=== PATIENT | female | born 1935 | race Caucasian/White ===

== ENCOUNTER 2017-01-10 15:04 | Inpatient (IN) | payer MEDICARE, BC ==
[~2017-01-10] VITALS: Ht 165.1 cm; Wt 62.6 kg
--- NOTE | 2017-01-10 15:44 | NUR ---
PT BIBA FOR S/P GLF COMPLAINING OF LEFT HIP PAIN, DENIES KO, DENIES HEAD OR BACK PAIN. HISTORY OF HIP PROBLEMS. FAMILY MEMBERS AT BS. VSS. SAFETY AND COMFORT MEASURES PROVIDED. WILL MONITOR.
--- NOTE | 2017-01-10 15:46 | NUR ---
MS AT FOR JOSAL.
[2017-01-10] MEDS ORDERED: ONDANSETRON HCL/PF 4 MG/2 ML VIAL ONE (16:06)
[2017-01-10] MEDS ORDERED: HYDROMORPHONE 1 MG/1 ML DISP.SYRIN ONE ×3 (16:06→23:35)
[2017-01-10 16:19] LABS: BASOPHILS # (AUTO) 0.1 /CMM (0.0-0.2); BASOPHILS % (AUTO) 0.3 % (0.0-2.0); EOSINOPHILS # (AUTO) 0.2 /CMM (0.0-0.7); EOSINOPHILS % (AUTO) 0.9 % (0.0-6.0); HEMATOCRIT 40 % (33-45); HEMOGLOBIN 13.6 g/dL (11.5-14.8); LYMPHOCYTES # (AUTO) 1.3 /CMM (0.8-4.8); LYMPHOCYTES % (AUTO) 7.8 % (20.0-44.0); MEAN CORPUSCULAR HEMOGLOBIN 32 PG (26.0-33.0); MEAN CORPUSCULAR HGB CONC 34 g/dl (31.0-36.0); MEAN CORPUSCULAR VOLUME 94 fL (82-100); MONOCYTES # (AUTO) 1.1 /CMM (0.1-1.30); MONOCYTES % (AUTO) 6.6 % (2.0-12.0); NEUTROPHILS # (AUTO) 14.3 /CMM (1.8-8.9); NEUTROPHILS % (AUTO) 84.4 % (43.0-81.0); PLATELET COUNT (AUTO) 349 /CMM (150-450); RDW COEFFICIENT OF VARIATION 11.6 (11.5-15.0); RED BLOOD CELL COUNT(AUTO) 4.29 MIL/uL (4.0-5.2)
[2017-01-10 16:28] LABS: CALCIUM, SERUM 9.3 mg/dL (8.5-10.1); CREATININE 0.8 mg/dL (0.6-1.3); POTASSIUM 3.3 mmol/L (3.5-5.1)
[2017-01-10] MEDS ORDERED: ONDANSETRON HCL/PF - ER 4 MG/2 ML VIAL IV ONE (16:30)
[2017-01-10] MEDS ORDERED: HYDROMORPHONE 1 MG/1 ML DISP.SYRIN IV ONE ×2 (16:30→18:00)
[2017-01-10] MEDS ORDERED: HYDROMORPHONE MDV 0.5 MG in IV D5W 50 ML IV PRN (16:30)
[2017-01-10 16:32] LABS: INR 0.96 (0.87-1.13)
--- NOTE | 2017-01-10 18:17 | NUR ---
PAGED ENGINEERING SCIENTIST ORTHO
--- NOTE | 2017-01-10 18:26 | NUR ---
PAGED ORTHO DR MARCANO RAD
[2017-01-10] MEDS ORDERED: HYDR-3326 PO ×2 (18:39)
[2017-01-10] MEDS ORDERED: PRAV80TA PO (18:39)
[2017-01-10] MEDS ORDERED: AMLO5TAB4 PO (18:39)
[2017-01-10] MEDS ORDERED: LETR2.5T PO (18:39)
[2017-01-10] MEDS ORDERED: QUET25TA PO (18:39)
[2017-01-10] MEDS ORDERED: ACET-2605 PO (18:39)
[2017-01-10] MEDS ORDERED: LORA1TAB82 PO (18:39)
[2017-01-10] MEDS ORDERED: LACT1CAP55 PO (18:39)
[2017-01-10] MEDS ORDERED: LEVO25TA7 PO (18:39)
[2017-01-10] MEDS ORDERED: DOCU-25 PO (18:39)
[2017-01-10] MEDS ORDERED: PARO10TA26 PO (18:39)
[2017-01-10] MEDS ORDERED: FERR-58 PO (18:39)
--- NOTE | 2017-01-10 18:42 | NUR ---
REPAGED DR KRYS SMITH
--- NOTE | 2017-01-10 18:50 | NUR ---
DR LIZ ON THE PHONE WITH DR SMITH
[2017-01-10] MEDS ORDERED: IV SET PRIMARY PUMP SET 1 EA INFUS.SET MC ONE (18:55)
[2017-01-10] MEDS ORDERED: IV NS 0.9% 500 ML IV ONE ×2 (18:55→21:38)
[2017-01-10] MEDS ORDERED: IV NS 0.9% 500 ML BAG IV ONE ×2 (19:30→21:30)
--- NOTE | 2017-01-10 19:44 | NUR ---
RECEIVED PATIENT IN BED, ALERT, RESPONSIVE TO VERBAL AND TACTILE STIMULI. VSS. FAMILY AT BEDSIDE. NO FURTHER COMPLAINTS.
--- NOTE | 2017-01-10 21:24 | NUR ---
Report given to Belen RAMOS for justyna.
[2017-01-10] MEDS ORDERED: IV SET PRIMARY 1 EA INFUS.SET MC ONE (21:38)
--- NOTE | 2017-01-10 22:40 | NUR ---
spoke with radiology regarding CD order for the family and he said, "he's going to go up in 309 and give to family." Endorsed as well to Belen RAMOS. Transported to ms room 309-2, no incident noted.
--- NOTE | 2017-01-10 22:45 | NUR ---
RN ADMITTING NOTES RECEIVED REPORT FROM [employer]MINISTRAT[employer]. Pt ARRIVED TO FLOOR VIA GURNEY. NO S/S OF ACUTE DISTRESS OR SOB NOTED. Pt TRANSFERRED TO BED SAFELY. DAUGHTER AND CAREGIVER AT BEDSIDE. Pt IS INTERMITTENTLY AWAKE, SPEECH IS SLIGHTLY GARBLED. IV ACCESS ON LAC #20G. SAFETY MEASURES IN PLACE. BED LOW, LOCKED, HOB SLIGHTLY ELEVATED, SIDE RAILS UP, CALL LIGHT AND BEDSIDE TABLE WITHIN REACH. WILL CONTINUE TO MONITOR Pt THROUGHOUT THE NIGHT FOR SAFETY.
[2017-01-10 23:00] VITALS: BP 123/66
[2017-01-10] MEDS ORDERED: HYDROCODONE/APAP 5/325MG 1 EACH TABLET PO PRN ×2 (23:00)
[2017-01-10] MEDS ORDERED: POTASSIUM CHLORIDE 20 MEQ TAB.PRT.SR PO ONE (23:30)
[2017-01-10] MEDS ORDERED: ONDANSETRON HCL/PF 4 MG/2 ML VIAL IV PRN (23:30)
[2017-01-10 23:55] LABS: LACTIC ACID 2.1 mmol/L (0.4-2.0)
[2017-01-11] MEDS ORDERED: POTASSIUM CHLORIDE 20 MEQ TAB.PRT.SR PO ONE (00:12)
[2017-01-11] MEDS ORDERED: IV SET PRIMARY PUMP SET 1 EA INFUS.SET MC ONE (00:14)
[2017-01-11] MEDS ORDERED: IV D5/ 0.9% NACL 1,000 ML IV ONE (00:14)
[2017-01-11] MEDS: IV D5/ 0.9% NACL 1,000 ML IV SCH ×2 (00:45→02:10)
[2017-01-11 01:34] LABS: BILIRUBIN,DIRECT 0.1 mg/dL (0.0-0.2); BILIRUBIN,TOTAL 0.4 mg/dL (0.2-1.0)
[2017-01-11 01:40] LABS: LACTIC ACID REFLEX 1.2 mmol/L (0.4-1.9)
[2017-01-11] MEDS ORDERED: HYDROMORPHONE 1 MG/1 ML DISP.SYRIN ONE (04:27)
[2017-01-11] MEDS: HYDROMORPHONE 1 MG/1 ML DISP.SYRIN IV PRN ×3 (04:34→21:11)
[2017-01-11] MEDS ORDERED: LORAZEPAM 1 MG TABLET ONE (06:20)
[2017-01-11 06:39] LABS: BASOPHILS # (AUTO) 0.1 /CMM (0.0-0.2); BASOPHILS % (AUTO) 0.4 % (0.0-2.0); EOSINOPHILS % (AUTO) 0.1 % (0.0-6.0); HEMATOCRIT 32 % (33-45); HEMOGLOBIN 10.9 g/dL (11.5-14.8); LYMPHOCYTES # (AUTO) 1.5 /CMM (0.8-4.8); LYMPHOCYTES % (AUTO) 11.6 % (20.0-44.0); MEAN CORPUSCULAR HEMOGLOBIN 32 PG (26.0-33.0); MEAN CORPUSCULAR HGB CONC 34 g/dl (31.0-36.0); MEAN CORPUSCULAR VOLUME 95 fL (82-100); MONOCYTES # (AUTO) 1.6 /CMM (0.1-1.30); MONOCYTES % (AUTO) 12.2 % (2.0-12.0); NEUTROPHILS # (AUTO) 9.8 /CMM (1.8-8.9); NEUTROPHILS % (AUTO) 75.7 % (43.0-81.0); PLATELET COUNT (AUTO) 278 /CMM (150-450); RDW COEFFICIENT OF VARIATION 12.7 (11.5-15.0); WHITE BLOOD COUNT (AUTO) 12.9 K/uL (4.3-11.0)
--- NOTE | 2017-01-11 06:45 | NUR ---
RN CLOSING NOTES NO SIGNIFICANT CHANGES DURING THE NIGHT. NO S/S OF ACUTE DISTRESS OR SOB NOTED. SAFETY MEASURES IN PLACE. Pt IS NPO EXCEPT FOR MEDS. ALL NEEDS MET AND ATTENDED TO. WILL ENDORSE TO DAYSHIFT RN FOR Pt's ROMARIO.
[2017-01-11 06:54] LABS: INR 0.93 (0.87-1.13); PROTHROMBIN TIME 9.9 SECS (9.5-12.7)
[2017-01-11 06:55] LABS: CALCIUM, SERUM 8.5 mg/dL (8.5-10.1); CREATININE 1.8 mg/dL (0.6-1.3); POTASSIUM 3.9 mmol/L (3.5-5.1)
[2017-01-11] MEDS ORDERED: LORAZEPAM 1 MG TABLET PO SCH (07:00)
--- NOTE | 2017-01-11 07:45 | NUR ---
MS RN OPENING NOTE PATIENT IS ALERT AND ORIENTED x2. NO PAIN AT THIS TIME. NO SOB OR DISTRESS NOTED. SAFETY MEASURES IMPLEMENTED. CALL LIGHT WITHIN REACH. BURR CATHETER IN PLACE. NO IRRITATION AT THIS TIME. IV INTACT AND PATENT NO REDNESS OR SWELLING WILL CONTINUE TO MONITOR
[2017-01-11 08:00] VITALS: BP 100/53
[2017-01-11] MEDS: AMLODIPINE BESYLATE 5 MG TABLET PO SCH (09:00)
[2017-01-11] MEDS: LETROZOLE 2.5 MG TABLET PO SCH (09:00)
[2017-01-11] MEDS: PAROXETINE HCL 10 MG TABLET PO SCH (09:25)
[2017-01-11] MEDS: DOCUSATE SODIUM 100 MG CAPSULE PO SCH (09:26)
[2017-01-11] MEDS: LEVOTHYROXINE SODIUM 25 MCG TABLET PO SCH (09:26)
[2017-01-11] MEDS: FERROUS SULFATE (325 MG) 325 MG/TAB TABLET PO SCH (09:26)
[2017-01-11 11:34] LABS: ALBUMIN 3.2 g/dL (3.4-5.0); BILIRUBIN,DIRECT 0.1 mg/dL (0.0-0.2); BILIRUBIN,TOTAL 0.4 mg/dL (0.2-1.0); TOTAL PROTEIN, SERUM 6.9 g/dL (6.4-8.2)
[2017-01-11 11:47] LABS: THYROID STIMULATING HORMONE 1.04 uIU/mL (0.358-3.74)
[2017-01-11 16:00] VITALS: BP 133/61
--- NOTE | 2017-01-11 19:00 | NUR ---
MS RN OPENING NOTE PATIENT IS ALERT AND ORIENTED x2 NO S/S OF DISTRESS, NO CHEST PAIN. NO SOB OR DISTRESS NOTED. IN STABLE CONDITION. SAFETY MEASURES IMPLEMENTED. BURR CATHETER IN PLACE.. IV INTACT NO S/S OF INFILTRATION NOTED. CALL LIGHT WITHIN REACH. ON LOW BED TO ENSURE SAFETY. WILL CONTINUE TO MONITOR
--- NOTE | 2017-01-11 19:12 | NUR ---
MS RN CLOSING NOTE PATIENT IS ALERT AND ORIENTED x2. NO PAIN AT THIS TIME. NO SOB OR DISTRESS NOTED. IV INTACT AND PATENT. CALL LIGHT WITHIN REACH AT ALL TIMES. SAFETY MEASURES IMPLEMENTED. PATIENT COMPLAINING OF BURR CATHETER BOTHERING HER, MADE MD AWARE. LEFT HIP FRACTURE. NO LONGER NPO DIET. WILL ENDORSE TO WASHING MACHINE REPAIRER NURSE
[2017-01-11 20:00] VITALS: BP 151/67
[2017-01-11] MEDS: LORAZEPAM 1 MG TABLET PO SCH (21:10)
[2017-01-11] MEDS: QUETIAPINE FUMARATE 25 MG TABLET PO SCH (21:11)
[2017-01-12] MEDS: IV D5/ 0.9% NACL 1,000 ML IV SCH ×2 (02:10→15:30)
[2017-01-12] MEDS: HYDROMORPHONE 1 MG/1 ML DISP.SYRIN IV PRN ×2 (02:34→15:12)
--- NOTE | 2017-01-12 06:06 | NUR ---
MS RN NOTES IV HYDRATION 75CC NOT GIVEN,, ORDER SAYS WHILE NPO....PATIENT NOT NPO.
--- NOTE | 2017-01-12 06:28 | NUR ---
MS RN CLOSING NOTES PATIENT COMFORTABLY ASLEEP AND EASILY AWAKEN,. A/O X 2 IV SITE NO S/S OF INFILTRATED, RESPIRATIONS EVEN AND UNLABORED. NO S/S OF ACUTE DISTRESS, NO SOB, NO COUGH, NO CONGESTION, SKIN WARM AND DRY TO TOUCH, AFEBRILE, ALL NURSING CARE NEEDS PROVIDED AND RENDERED, NEEDS ATTENDED AND ANTICIPATED, KEPT CLEAN AND DRY AND COMFORTABLE, BLADDER NOT DISTENDED, REPOSITIONED EVERY 2 HOURS FOR SKIN MANAGEMENT. GOOD SKIN CARE PROVIDED. ABDOMEN SOFT AND NON TENDER. NO C/O OF CONSTIPATION. ALL DUE MEDS WAS GIVEN TOLERATED. OFFLOAD AT ALL TIMES. FREQUENT VISUAL CHECK DONE FOR SAFETY EVERY 2 HOURS. SAFE HAZARD FREE ENVIRONMENT PROVIDED. CALL LIGHT WITHIN EASY TO REACH, ON LOW BED AT ALL TIMES TO ENSURE SAFETY, WILL ENDORSE TO THE NEXT SHIFT CONTINUE PLAN OF CARE. F/C CATH INTACT DRAINING YELLOW VIA GRAVITY WITH NO SEDIMENTS NO HEMATURIA NO CLOUDINESS. GOOD FC CARE PROVIDED
[2017-01-12 06:39] LABS: BASOPHILS % (AUTO) 0.4 % (0.0-2.0); EOSINOPHILS # (AUTO) 0.1 /CMM (0.0-0.7); EOSINOPHILS % (AUTO) 0.9 % (0.0-6.0); HEMATOCRIT 27 % (33-45); HEMOGLOBIN 9.3 g/dL (11.5-14.8); LYMPHOCYTES # (AUTO) 1.3 /CMM (0.8-4.8); LYMPHOCYTES % (AUTO) 12.9 % (20.0-44.0); MEAN CORPUSCULAR HEMOGLOBIN 33 PG (26.0-33.0); MEAN CORPUSCULAR HGB CONC 35 g/dl (31.0-36.0); MEAN CORPUSCULAR VOLUME 95 fL (82-100); MONOCYTES # (AUTO) 1.3 /CMM (0.1-1.30); MONOCYTES % (AUTO) 12.8 % (2.0-12.0); NEUTROPHILS # (AUTO) 7.5 /CMM (1.8-8.9); PLATELET COUNT (AUTO) 166 /CMM (150-450); RDW COEFFICIENT OF VARIATION 12.6 (11.5-15.0); RED BLOOD CELL COUNT(AUTO) 2.82 MIL/uL (4.0-5.2); WHITE BLOOD COUNT (AUTO) 10.2 K/uL (4.3-11.0)
[2017-01-12 06:42] LABS: ALBUMIN 2.9 g/dL (3.4-5.0); BILIRUBIN,TOTAL 0.5 mg/dL (0.2-1.0); CALCIUM, SERUM 8.4 mg/dL (8.5-10.1); CREATININE 1.4 mg/dL (0.6-1.3); MAGNESIUM 1.8 mg/dL (1.8-2.4); PHOSPHORUS 3.1 mg/dL (2.5-4.9); POTASSIUM 4.2 mmol/L (3.5-5.1); TOTAL PROTEIN, SERUM 6.5 g/dL (6.4-8.2)
--- NOTE | 2017-01-12 07:30 | NUR ---
MS RN OPENING NOTE PATIENT IS ALERT AND ORIENTED x2. NO PAIN AT THIS TIME. NO SOB OR DISTRESS NOTED. ALL NURSING CARE NEEDS WILL BE ATTENDED TO. SAFETY MEASURES IMPLEMENTED. CALL LIGHT WITHIN REACH WILL CONTINUE TO MONITOR
[2017-01-12 08:00] VITALS: BP_SYST 152; BP_SYST 92; BP_DIAS 54; BP_DIAS 68
[2017-01-12] MEDS: DOCUSATE SODIUM 100 MG CAPSULE PO SCH (08:13)
[2017-01-12] MEDS: PAROXETINE HCL 10 MG TABLET PO SCH (08:13)
[2017-01-12] MEDS: AMLODIPINE BESYLATE 5 MG TABLET PO SCH (08:13)
[2017-01-12] MEDS: LORAZEPAM 1 MG TABLET PO SCH ×2 (08:13→21:26)
[2017-01-12] MEDS: LEVOTHYROXINE SODIUM 25 MCG TABLET PO SCH (08:13)
[2017-01-12] MEDS: FERROUS SULFATE (325 MG) 325 MG/TAB TABLET PO SCH (08:13)
[2017-01-12] MEDS: LETROZOLE 2.5 MG TABLET PO SCH (08:47)
[2017-01-12 12:00] VITALS: BP 122/70
--- NOTE | 2017-01-12 15:45 | NUR ---
MS RN NOTE PATIENT'S DAUGHTER STATED TO ME THAT PATIENT DID NOT LOOK WELL. I WENT TO ASSESS PATIENT, NOTICED PATIENT WAS HAVING MUSCLE SPASMS IN RIGHT AND LEFT SIDE OF THE BODY AND MADE DR. NICHOLSON AWARE. RECEIVED ORDERS FOR EEG. MADE CHARGE NURSE AWARE
[2017-01-12 16:00] VITALS: BP 147/70
--- NOTE | 2017-01-12 18:15 | NUR ---
MS RN NOTE WENT TO CHECK ON PATIENT AND NOTICED PATIENT WAS OFF BASELINE. CHECKED VITALS WHICH WERE STABLE. PATIENT NOT ABLE TO VERBALIZE NEEDS, PATIENT GRUNTS AND MOANS. NOTIFIED DR. NICHOLSON TO MAKE AWARE. PATIENT'S DAUGHTER REQUESTED TO HAVE DOCTOR COME LOOK AT HER MOTHER. MADE DR. LEON AWARE OF SITUATION OF PATIENT, GAVE STAT ORDER FOR ARTERIAL BLOOD GAS TO BE DRAWN AFTER EEG. WILL NOTIFY PACKAGE DRIER NURSE
--- NOTE | 2017-01-12 19:00 | NUR ---
MS RN OPENING NOTE PATIENT IS ALERT AND ORIENTED x2, FAMILY AT BEDSIDE, WILL WAIT FOR THE RESULTS OF EEG, NO S/S OF DISTRESS, NO CHEST PAIN. NO SOB OR DISTRESS NOTED. IN STABLE CONDITION. SAFETY MEASURES IMPLEMENTED. BURR CATHETER IN PLACE.. IV INTACT NO S/S OF INFILTRATION NOTED. CALL LIGHT WITHIN REACH. ON LOW BED TO ENSURE SAFETY. WILL CONTINUE TO MONITOR
--- NOTE | 2017-01-12 19:12 | NUR ---
MS RN CLOSING NOTE PATIENT IS STABLE AT THIS TIME. ALERT AND ORIENTED x2. PATIENT IS NOT AT BASELINE. , DR. NICHOLSON AWARE. STAT ABG'S TO BE DONE. NO PAIN AT THIS TIME. PATIENT HAD EEG DONE, AWAITING RESULTS. WILL ENDORSE TO PUBLIC WEIGHER NURSE.
[2017-01-12 20:00] VITALS: BP 140/74
[2017-01-12 21:00] VITALS: BP 142/67
[2017-01-12] MEDS: QUETIAPINE FUMARATE 25 MG TABLET PO SCH (21:26)
[2017-01-12 21:27] LABS: ABG BASE EXCESS -2.1 mmol/L; ABG OXYGEN SATURATION 91.7 % (92.0-98.5); ABG PCO2 30.6 mmHg (35.0-45.0); ABG PH 7.455 (7.350-7.450); ABG PO2 62.4 mmHg (75.0-100.0); ABG TOTAL HEMOGLOBIN 11.1 G/dL (12.0-16.0); AaDO2 101.1 mmHg; COHb 1.3 % (0.5-1.5); MetHb 0.7 % (0.0-1.5); O2Hb 89.9 % (94.0-97.0); SITE, ABG Left Radial
[2017-01-13] MEDS: IV D5/ 0.9% NACL 1,000 ML IV SCH (04:50)
--- NOTE | 2017-01-13 04:50 | NUR ---
IV D5NS AT 0450 NOT GIVEN PATIENT INSTRUCTION SHOULD BE GIVEN WHILE THE PATIENT IS NPO. PATIENT NOT NPO AT THIS TIME.
--- NOTE | 2017-01-13 06:31 | NUR ---
MS RN CLOSING NOTES IN BED ASLEEP AND EASILY AWAKEN, ON 2LPM VIA NC 02 SAT AT 97% SEMI FOWLERS POSITION, SKIN WARM AND DRY TO TOUCH, AFEBRILE, ALL NURSING CARE NEEDS PROVIDED AND RENDERED, NEEDS ATTENDED AND ANTICIPATED, KEPT CLEAN AND DRY AND COMFORTABLE, BLADDER NOT DISTENDED, CONTINUE WITH CURRENT MEDICATION ORDERED, NO LATE ADVERSE REACTION NOTED/REPORTED. FLUIDS PROVIDED ORDERED. COOPERATIVE TO HER PLAN OF CARE. SAFE HAZARD FREE ENVIRONMENT MAINTAINED. REPOSITIONED EVERY 2 HOURS FOR SKIN MANAGEMENT AND COMFORT. GOOD SKIN CARE PROVIDED. ALL DUE MEDS WAS GIVEN. IN STABLE CONDITION NO S/S OF DISTRESS. KEPT AT LOW BED. FREQUENT VISUAL CHECK FOR SAFETY. PLAN OF CARE ORDERED. CALL LIGHT ATTENDED PROMPTLY AND KEPT AT EASY REACH. WILL ENDORSE TO THE NEXT SHIFT CONTINUE PLAN OF CARE. FC CATH IN PLACE WITH NO SEDIMENTS, NO HEMATURIA, NO CLOUDINESS, GOOD FC CARE PROVIDED.
[2017-01-13 06:51] LABS: BASOPHILS % (AUTO) 0.3 % (0.0-2.0); EOSINOPHILS # (AUTO) 0.2 /CMM (0.0-0.7); EOSINOPHILS % (AUTO) 1.8 % (0.0-6.0); HEMATOCRIT 23 % (33-45); HEMOGLOBIN 7.9 g/dL (11.5-14.8); LYMPHOCYTES # (AUTO) 1.3 /CMM (0.8-4.8); LYMPHOCYTES % (AUTO) 13.6 % (20.0-44.0); MEAN CORPUSCULAR HEMOGLOBIN 33 PG (26.0-33.0); MEAN CORPUSCULAR HGB CONC 34 g/dl (31.0-36.0); MEAN CORPUSCULAR VOLUME 95 fL (82-100); MONOCYTES # (AUTO) 1.3 /CMM (0.1-1.30); MONOCYTES % (AUTO) 14.4 % (2.0-12.0); NEUTROPHILS # (AUTO) 6.5 /CMM (1.8-8.9); NEUTROPHILS % (AUTO) 69.9 % (43.0-81.0); PLATELET COUNT (AUTO) 177 /CMM (150-450); RDW COEFFICIENT OF VARIATION 12.5 (11.5-15.0); RED BLOOD CELL COUNT(AUTO) 2.43 MIL/uL (4.0-5.2); WHITE BLOOD COUNT (AUTO) 9.3 K/uL (4.3-11.0)
[2017-01-13 07:09] LABS: CALCIUM, SERUM 8.5 mg/dL (8.5-10.1); CREATININE 0.7 mg/dL (0.6-1.3); MAGNESIUM 1.7 mg/dL (1.8-2.4); POTASSIUM 3.8 mmol/L (3.5-5.1)
[2017-01-13 08:00] VITALS: BP 137/69
--- NOTE | 2017-01-13 08:00 | NUR ---
MS RN AM NOTES PATIENT IS ALERT AND ORIENTED x2, VERBALLY RESPONSIVE.CG AT BEDSIDE.NO S/S OF DISTRESS, NO CHEST PAIN. NO SOB OR DISTRESS NOTED. IN STABLE CONDITION. SAFETY MEASURES IMPLEMENTED. BURR CATHETER IN PLACE DRAINING CLEAR YELLOW URINE.WITH DISTENDED ABDOMEN DUE TO GALLBLADDER CA.IV H/L INTACT TO LEFT AC WITH IVF OF D5NS AT 75 ML/HR INFUSING WELL.NO S/S OF INFILTRATION NOTED.CAUTIOUS WITH TURNING AND REPOSITIONING DUE TO LT HIP FX WITH 2 PERSON ASSIST. CALL LIGHT WITHIN REACH. ON LOW BED TO ENSURE SAFETY. WILL CONTINUE TO MONITOR
[2017-01-13] MEDS: LEVOTHYROXINE SODIUM 25 MCG TABLET PO SCH (08:30)
--- NOTE | 2017-01-13 08:30 | NUR ---
ABLE TO CONSUME 1/2 CUP OF EGGS. FED BY GENERAL HANDLING SUPERVISOR WITH ASPIRATION PRECAUTIONS.WITH HOB ELEVATED.PT TOLERATED WELL.OFFERED FLUIDS AND CONSUMED ATLEAST 2 CUPS OF H2O.
[2017-01-13] MEDS: LORAZEPAM 1 MG TABLET PO SCH ×2 (08:31→21:07)
[2017-01-13] MEDS: FERROUS SULFATE (325 MG) 325 MG/TAB TABLET PO SCH ×2 (08:33→10:23)
[2017-01-13] MEDS: HYDROMORPHONE 1 MG/1 ML DISP.SYRIN IV PRN (08:33)
[2017-01-13] MEDS: DOCUSATE SODIUM 100 MG CAPSULE PO SCH ×2 (08:34→10:22)
[2017-01-13] MEDS ORDERED: Magnesium 1GM/D5W 100ML PREMIX 100 ML IV SCH (09:30)
[2017-01-13 10:04] LABS: BASOPHILS % (AUTO) 0.2 % (0.0-2.0); EOSINOPHILS # (AUTO) 0.1 /CMM (0.0-0.7); EOSINOPHILS % (AUTO) 1.2 % (0.0-6.0); HEMATOCRIT 24 % (33-45); HEMOGLOBIN 8.2 g/dL (11.5-14.8); LYMPHOCYTES # (AUTO) 1.1 /CMM (0.8-4.8); LYMPHOCYTES % (AUTO) 10.7 % (20.0-44.0); MEAN CORPUSCULAR HEMOGLOBIN 32 PG (26.0-33.0); MEAN CORPUSCULAR HGB CONC 34 g/dl (31.0-36.0); MEAN CORPUSCULAR VOLUME 94 fL (82-100); MONOCYTES # (AUTO) 1.4 /CMM (0.1-1.30); MONOCYTES % (AUTO) 13.4 % (2.0-12.0); NEUTROPHILS # (AUTO) 7.6 /CMM (1.8-8.9); NEUTROPHILS % (AUTO) 74.5 % (43.0-81.0); PLATELET COUNT (AUTO) 202 /CMM (150-450); RDW COEFFICIENT OF VARIATION 12.5 (11.5-15.0); RED BLOOD CELL COUNT(AUTO) 2.58 MIL/uL (4.0-5.2); WHITE BLOOD COUNT (AUTO) 10.2 K/uL (4.3-11.0)
--- NOTE | 2017-01-13 10:07 | NUR ---
TEXTED FOR MRI APPROVAL.
[2017-01-13] MEDS ORDERED: SECONDARY IV SET 1 EA INFUS.SET MC ONE (10:12)
[2017-01-13] MEDS: PAROXETINE HCL 10 MG TABLET PO SCH (10:21)
[2017-01-13] MEDS: LETROZOLE 2.5 MG TABLET PO SCH (10:22)
[2017-01-13] MEDS: Magnesium 1GM/D5W 100ML PREMIX 100 ML IV SCH ×2 (10:25→11:44)
[2017-01-13] MEDS: AMLODIPINE BESYLATE 5 MG TABLET PO SCH (10:26)
--- NOTE | 2017-01-13 11:00 | NUR ---
DR SMITH CALLED AND WAS CHECKING ON THE PT STATUS.PT WILL BE DISCHARGED TO [facility] ONCE BED IS AVAILABLE AND THE ORTHO SURGEON WILL BE DR LAW AND THE HOSPITALIST WILL BE DR GILBERT.
[2017-01-13] MEDS ORDERED: K PHOS NEUTRAL 250 MG TABLET PO ONE (14:00)
[2017-01-13 16:00] VITALS: BP 140/72
--- NOTE | 2017-01-13 16:30 | NUR ---
PT NOTED TO BEING FED BY CAREGIVER AT 35-40 DEGREES HOB ELEVATION.EXPLAINED TO PT'S DAUGHTER AND CG,TO ELEVATE THE HOB AT 90 DEGREES TO PREVENT ASPIRATION.PT'S DAUGHTER,FARTUN AND CG SAID PT WAS OK.
[2017-01-13] MEDS ORDERED: IV D5/ 0.9% NACL 1,000 ML IV PRN (17:00)
[2017-01-13] MEDS ORDERED: IPRATROPIUM NEB FS 0.5 MG/2.5 ML AMPUL.NEB NEB PRN (17:00)
--- NOTE | 2017-01-13 17:00 | NUR ---
PT'S DAUGHTER,FARTUN C/O THAT PT IS WHEEZING AND IS HAVING SOB.EMPHASIZED TO THE CG AND DAUGHTER,FARTUN THAT IS THE REASON WHY THE PT NEEDS TO HAVE HER HOB ELEVATED WHEN BEING FED WITH FLUIDS OR FOOD.PT REMAINS ON 35 DEGREES STILL AND DAUGHTER REFUSED FOR ME TO HAVE THE HOB ELEVATED SAYING PT BREATHES BETTER WITH LESS WHEEZING ON THIS 35 DEGREE ELEVATION.CHECKED PT'S O2 SAT WHICH WAS 95% ON O2 AT 2L/MIN VIA N/C.PAGED DR LEON AWAITING TO RETURN CALL.
[2017-01-13] MEDS ORDERED: ALBUTEROL FS 2.5 MG/3 ML VIAL.NEB NEB PRN (17:06)
--- NOTE | 2017-01-13 17:13 | NUR ---
PT IS C/O HAVING DIFFICULTY VOIDING INSPITE OF HAVING THE BURR CATHETER INTACT.PT'S DAUGHTER STATED THAT PT'S BLADDER GOT IRRITATED FROM THE BURR INSERTION AND WANTS TO RULE OUT UTI.NOTIFIED DR LEON WITH ORDERS FOR UA UA C/S DONE AND SENT TO LAB.
--- NOTE | 2017-01-13 17:40 | NUR ---
PT'S DAUGHTER,FARTUN STATED THAT HER MOM IS HAVING ALLERGIC REACTION AND HER MOM'S LOWER LIP IS GETTING SWOLLEN INCLUDING THE NECK.NO RED RASHES OR HIVES NOTED.NO C/O ITCHINESS JUST WHEEZING .PAGED DR LEON AND AWAITING TO RETURN CALL.
--- NOTE | 2017-01-13 17:54 | NUR ---
EYEBAG PUFFINESS NOTED.PT'S DAUGHTER,FARTUN AND CG INSISTS THAT PT'S NECK SWELLING AND LOWER LIP IS GETTING BIGGER WHICH I HAVE NOT OBSERVED UPON CHECKING THE PT.INFORMED DR LEON IN WHICH FARTUN,PT'S DAUGHTER ALSO SPOKE TO HIM ON THE PHONE WELL.BENADRYL 25 MG IV GIVEN.PT'S O2 SAT REMAINS AT 95% AND ALBUTEROL AND ATROVENT BREATHING TX GIVEN BY R.T.
[2017-01-13] MEDS ORDERED: diphenhydrAMINE HCL 50 MG/ML VIAL IV ONE (18:00)
--- NOTE | 2017-01-13 18:30 | NUR ---
CHECKED ON THE PT AND O2 SAT 100% ON O2 AT 3L/MIN VIA N/C.DECREASED O2 AT 2L/MIN VIA NC AND WILL MONITOR.PT'S DAUGHTER,FARTUN STATED THAT THE SWELLING OF THE NECK AND THE LOWER LIP IS SLOWLY SUBSIDING.WILL CONTINUE TO MONITOR.DAUGHTER,FARTUN NOW IS REQUESTING FOR A BOOST CHOCOLATE FOR HER MOM.CALLED DR LEON AND CARRIED OUT.
[2017-01-13] MEDS: BOOST PLUS FOOD-CHOCLATE 237 ML BOX PO SCH (19:00)
--- NOTE | 2017-01-13 19:00 | NUR ---
MS RN OPENING NOTE PATIENT IS ALERT AND ORIENTED X2, NO PUFFINESS IN THE EYES NO SWELLING OF THE NECK, FAMILY AT BEDSIDE, NO S/S OF DISTRESS, NO CHEST PAIN. NO SOB OR DISTRESS NOTED. IN STABLE CONDITION. SAFETY MEASURES IMPLEMENTED. BURR CATHETER IN PLACE DRAINING YELLOW VIA GRAVITY WITH NO SEDIMENTS NO HEMTAURIA NO CLOUDINESS. IV INTACT NO S/S OF INFILTRATION NOTED. CALL LIGHT WITHIN REACH. ON LOW BED TO ENSURE SAFETY. WILL CONTINUE TO MONITOR
[2017-01-13] MEDS: HYDROCODONE/APAP 10/325MG 1 EA TABLET PO PRN (19:08)
--- NOTE | 2017-01-13 19:30 | NUR ---
MS3/RN CLOSING NOTE PATIENT IS ALERT AND ORIENTED x2, VERBALLY RESPONSIVE.CG AT BEDSIDE.NO CHEST PAIN AND NO SOB. PT. C/O PAIN AND WAS GIVEN NORCO PAIN MEDICATION. IN STABLE CONDITION. SAFETY MEASURES IMPLEMENTED. BURR CATHETER IN PLACE DRAINING CLEAR YELLOW URINE.WITH DISTENDED ABDOMEN DUE TO GALLBLADDER CA.IV H/L INTACT TO LEFT AC WITH IVF OF D5NS AT 75 ML/HR INFUSING WELL.NO S/S OF INFILTRATION NOTED.CAUTIOUS WITH TURNING AND REPOSITIONING DUE TO LT HIP FX WITH 2 PERSON ASSIST. CALL LIGHT WITHIN REACH. ON LOW BED TO ENSURE SAFETY. WILL CONTINUE TO MONITOR
[2017-01-13 20:00] VITALS: BP_SYST 147; BP_DIAS 61; BP_DIAS 67
[2017-01-13] MEDS: QUETIAPINE FUMARATE 25 MG TABLET PO SCH (21:07)
--- NOTE | 2017-01-14 06:45 | NUR ---
MS RN CLOSING NOTES PATIENT COMFORTABLY IN BED ASLEEP AND EASILY AWAKEN, ALERT AND VERBALLY X 2 RESPONSIVE DENIES PAIN OR DISTRESS, RESPONDS APPROPRIATELY TO VERBAL STIMULI, RESPIRATIONS EVEN UNLABORED BREATH SOUNDS. IV HYDRATION RUNNING WELL. TOLERATED. APICAL PULSE REGULAR; NO S/S OF BLEEDING NOTED. GOOD SKIN CARE PROVIDED. PATIENT IN STABLE CONDITION WITH NO SOB NO S/S OF DISTRESS NO NAUSEA AND VOMITING NO HEADACHE NO PAIN, NO COMPLAIN OF CHEST PAIN SAFETY ENVIRONMENT PROVIDED. FREE OF CLUTTERS, NEEDS ATTENDED AND ANTICIPATED, NURSING CARE RENDERED, KEPT CLEAN AND DRY AND COMFORTABLE. ALL DUE MEDS WAS GIVEN. REPOSITIONED Q2H FOR COMFORT AND SKIN MGT. CALL LIGHT IN REACH, BED LOWERED AND LOCKED, SR X2 FOR SAFETY AND WILL ENDORSE CONTINUE PLAN OF CARE. FC INTACT DRAINING YELLOW VIA GRAVITY WITH NO SEDIMENTS NO HEMATURIA NO CLOUDINESS GOOD FC CARE PROVIDED. MRI TO BE DONE TODAY
[2017-01-14 07:10] LABS: BASOPHILS % (AUTO) 0.4 % (0.0-2.0); EOSINOPHILS # (AUTO) 0.4 /CMM (0.0-0.7); EOSINOPHILS % (AUTO) 4.6 % (0.0-6.0); HEMATOCRIT 23 % (33-45); HEMOGLOBIN 7.8 g/dL (11.5-14.8); LYMPHOCYTES # (AUTO) 0.9 /CMM (0.8-4.8); LYMPHOCYTES % (AUTO) 12.4 % (20.0-44.0); MEAN CORPUSCULAR HEMOGLOBIN 32 PG (26.0-33.0); MEAN CORPUSCULAR HGB CONC 34 g/dl (31.0-36.0); MEAN CORPUSCULAR VOLUME 95 fL (82-100); MONOCYTES % (AUTO) 13.7 % (2.0-12.0); NEUTROPHILS # (AUTO) 5.2 /CMM (1.8-8.9); NEUTROPHILS % (AUTO) 68.9 % (43.0-81.0); PLATELET COUNT (AUTO) 188 /CMM (150-450); RDW COEFFICIENT OF VARIATION 12.3 (11.5-15.0); RED BLOOD CELL COUNT(AUTO) 2.42 MIL/uL (4.0-5.2); WHITE BLOOD COUNT (AUTO) 7.6 K/uL (4.3-11.0)
--- NOTE | 2017-01-14 07:21 | NUR ---
MS RN OPENING NOTES RECEIVED PATIENT RESTING IN BED COMFORTABLY, ASLEEP RESPONDS TO VERBAL STIMULI, RESPIRATIONS EVEN AND UNLABORED. NO ACUTE DISTRESS NOTED, NO S/S OF PAIN OR DISCOMFORT. IV HYDRATION RUNNING WELL, IV SITE INTACT NO, S/S OF INFECTION/INFILTRATION NOTED. FC INTACT DRAINING YELLOW URINE VIA GRAVITY. SAFETY MEASURES RENDERED, BED LOCKED IN LOWEST POSITION. WILL CONTINUE TO MONITOR.
[2017-01-14 07:25] LABS: CALCIUM, SERUM 8.2 mg/dL (8.5-10.1); CREATININE 0.7 mg/dL (0.6-1.3); POTASSIUM 3.4 mmol/L (3.5-5.1)
[2017-01-14] MEDS: LEVOTHYROXINE SODIUM 25 MCG TABLET PO SCH (07:59)
[2017-01-14 08:00] VITALS: BP 119/69
[2017-01-14] MEDS: LORAZEPAM 1 MG TABLET PO SCH (08:00)
[2017-01-14] MEDS: BOOST PLUS FOOD-CHOCLATE 237 ML BOX PO SCH (08:00)
[2017-01-14] MEDS: PAROXETINE HCL 10 MG TABLET PO SCH (08:00)
[2017-01-14] MEDS: AMLODIPINE BESYLATE 5 MG TABLET PO SCH (08:01)
[2017-01-14 08:16] VITALS: BP 119/69
--- NOTE | 2017-01-14 10:05 | NUR ---
MS/RN NOTES PATIENTS CAREGIVER AT BEDSIDE. DISCUSSED WITH CAREGIVER ON PATENTS CURRENT CONDITION AND PLAN OF CARE. PATENT'S IV WAS STARTED BY PREVIOUS NURSE WHERE IT WAS TAPED DOWN WITH SURGICAL TAPE, WHICH PATENT IS ALLERGIC AND HAD LOCAL REACTION TO IT SUCH REDNESS, COVERED PROPERLY AND MONITORED.
[2017-01-14] MEDS: LETROZOLE 2.5 MG TABLET PO SCH (10:53)
[2017-01-14] MEDS ORDERED: POTASSIUM CHLORIDE 20 MEQ TAB.PRT.SR PO SCH (12:30)
[2017-01-14] MEDS: HYDROCODONE/APAP 10/325MG 1 EA TABLET PO PRN (13:51)
--- NOTE | 2017-01-14 14:00 | NUR ---
MS/RN NOTES EXIT CARE DONE, ALL DISCHARGE FORMS SIGNED, DOCUMENTED AND INSTRUCTED TO FAMILY. PATIENT IN STABLE CONDITION, REASON FOR TRANSFER TO [facility] FOR LEFT HIP FRACTURE FIXATION. DAUGHTER AT BEDSIDE INSISTING TO DISCHARGE PATIENT AND TRANSFER TO [facility] FOR ORTHO F/U. ALL DISCHARGE FORMS COPIED AND PLACED IN CHART. REPORT GIVEN TO NURSE ACCEPTING PATIENT. ALL MEDICATIONS GIVEN, IV REMOVED AND COVERED WITH 4X4. PATIENT HAS NO WOUNDS, NO PICTURES TO BE TAKEN ONLY FORMER SCAR ON THE LEFT HIP AND JADA CATH ON LEFT CHEST WALL. PATIENT TRANSFERRED VIA MED RESPONSE IN STABLE CONDITION. DISCUSSED D/C INSTRUCTIONS WITH PHYSICIAN AND AGREED.
== END 2017-01-14 14:30 | disposition short-term general hospital (02) | DRG 533 ==
LOC: ER 15:05 → MED 21:28
PROVIDERS: ADMIT Nurse Practitioner Acute Care; ATTEND Nurse Practitioner Acute Care
DX: S72.302A Unspecified fracture of shaft of left femur, initial encounter for closed fracture (principal); N17.0 Acute kidney failure with tubular necrosis; E87.0 Hyperosmolality and hypernatremia; E87.2 Acidosis; E44.0 Moderate protein-calorie malnutrition; C24.9 Malignant neoplasm of biliary tract, unspecified; C34.90 Malignant neoplasm of unspecified part of unspecified bronchus or lung; W01.0XXA Fall on same level from slipping, tripping and stumbling without subsequent striking against object, initial encounter; Y92.9 Unspecified place or not applicable; C50.919 Malignant neoplasm of unspecified site of unspecified female breast; E87.6 Hypokalemia; E86.0 Dehydration; I10 Essential (primary) hypertension; E03.9 Hypothyroidism, unspecified; Z90.10 Acquired absence of unspecified breast and nipple; Z96.642 Presence of left artificial hip joint; Z85.3 Personal history of malignant neoplasm of breast; M85.80 Other specified disorders of bone density and structure, unspecified site; E78.00 Pure hypercholesterolemia, unspecified; Z66 Do not resuscitate; D72.829 Elevated white blood cell count, unspecified; R73.9 Hyperglycemia, unspecified; E83.42 Hypomagnesemia; E78.5 Hyperlipidemia, unspecified; D50.9 Iron deficiency anemia, unspecified; D72.810 Lymphocytopenia; F32.9 Major depressive disorder, single episode, unspecified; F41.9 Anxiety disorder, unspecified; Z79.899 Other long term (current) drug therapy
CPT/HCPCS: 36415; 36600; 70450-TC; 70551-TC; 71010-TC; 73510-TC; 73590-TC; 80048-TC; 80053-TC; 80061-TC; 80076-TC; 82247-TC; 82248-TC; 82306; 82728-TC; 82962-TC; 83540-TC; 83605-TC; 83735-TC; 84100-TC; 84439-TC; 84443-TC; 85025-TC; 85610-TC; 85730-TC; 87081-TC; 93307-TC; 95819-TC; A4606; J1170; J1200; J2405; J3475; J7040; J7042; J7060; Z7610